=== PATIENT | female | born 1975 | race Caucasian/White ===

== ENCOUNTER 2017-09-26 22:57 | Inpatient (IN) | payer OTHER ==
[~2017-09-26] VITALS: Ht 152.4 cm; Wt 66.0 kg
[2017-09-27] MEDS ORDERED: ONDANSETRON 4 MG INJ IV PRN (01:00)
[2017-09-27 01:21] VITALS: BP 131/68; PULSE 84; RESP 14
[2017-09-27] MEDS: DEXTROSE 5%-0.45% NACL 1,000 ML IV SCH ×3 (01:41→21:00)
[2017-09-27] MEDS: morphine 4 MG/ML VIAL IV PRN ×4 (01:41→21:42)
[2017-09-27 01:52] VITALS: Ht 152.4 cm; Wt 66.0 kg
[2017-09-27 06:20] LABS: BASOPHIL # 0.1 10^3/ul (0.0-0.1); BASOPHILS % 0.3 % (0.0-2.0); EOSINOPHILS # 0.4 10^3/ul (0.0-0.5); EOSINOPHILS % 2.1 % (0.0-7.0); HEMATOCRIT 33.5 % (37.0-47.0); HEMOGLOBIN 10.8 g/dl (12.0-16.0); LYMPHOCYTES # 3.7 10^3/ul (0.8-2.9); LYMPHOCYTES % 21.4 % (15.0-51.0); MEAN CORPUSCULAR HEMOGLOBIN 26.1 pg (29.0-33.0); MEAN CORPUSCULAR HGB CONC 32.2 g/dl (32.0-37.0); MEAN CORPUSCULAR VOLUME 80.9 fl (82.0-101.0); MEAN PLATELET VOLUME 10.1 fl (7.4-10.4); NEUTROPHILS % 69.8 % (39.0-77.0); PLATELET COUNT 457 10^3/UL (140-415); RED BLOOD COUNT 4.14 10^6/ul (4.20-5.40); RED CELL DISTRIBUTION WIDTH 13.6 % (11.5-14.5); WHITE BLOOD COUNT 17.3 10^3/ul (4.8-10.8)
--- NOTE | 2017-09-27 07:03 | HP ---
Date/Time of Note Date/Time of Note DATE: 09/27/17 TIME: 06:56 Assessment/Plan VTE Prophylaxis VTE Prophylaxis Intervention: SCD's Lines/Catheters IV Catheter Type (from Nrs): Peripheral IV Assessment/Plan Assessment/Plan 1. Cholelithiasis with likely cholecystitis -NPO with IV fluid -Pain meds and antiemetics as needed -IV antibiotics -will order a HIDA scan -Surgery and a GI consult 2. Leukocytosis, secondary to above -Continue IV antibiotic HPI/ROS Admit Date/Time Admit Date/Time Sep 27, 2017 at 00:29 Hx of Present Illness This is a 42-year-old female with no significant past medical history who initially presented to [facility] complaining of abdominal pain. Patient was transferred to [facility] because of insurance reasons. She said her pain started 5 days ago and it is localized in the right upper and lower quadrant area. She reported nausea and few episodes of nonbilious nonbloody vomiting. Denied fever/chills, chest pain, shortness of breath, constipation or diarrhea. At [place], right upper quadrant ultrasound shows sludge and stone in the gallbladder. CBD measures 3.4 mm and the gallbladder wall measures 10.2 cm. The patient denied a history of cholelithiasis. Lab outside hospital shows a WBC of 26,000, otherwise CBC and BMP were within acceptable range. Lipase and LFTs were within normal limits. PMH/Family/Social Social History Smoking Status: Never smoker Exam/Review of Systems Vital Signs Vitals Vital Signs Date Time Temp Pulse Resp B/P Pulse Ox O2 Delivery O2 Flow Rate FiO2 09/27/17 01:21 98.4 84 14 131/68 100 Room Air Intake and Output 09/26/17 09/26/17 09/27/17 15:00 23:00 07:00 Intake Total 450 ml Output Total 400 ml Balance 50 ml Exam Constitutional: alert, oriented, well developed Head: atraumatic, normocephalic Eyes: EOMI, PERRL Respiratory: clear to auscultation, normal air movement Cardiovascular: nl pulses, regular rate and rhythm Gastrointestinal: other (Right upper and lower quadrant tenderness. No guarding no rigidity), soft Extremities: normal pulses Labs Result Diagram: 09/27/17 0443 Medications Medications Current Medications Dextrose/Sodium Chloride (D5-1/2ns) 1,000 ml @ 100 mls/hr Q10H IV Last administered on 09/27/17 01:41; Admin Dose 100 MLS/HR; Start 09/27/17 at 01: 00 Morphine Sulfate (morphine) 4 mg Q4H PRN IV SEVERE PAIN Last administered on 06:17; Admin Dose 4 MG; Start 09/27/17 at 01:00 Ondansetron HCl (Zofran Inj) 4 mg Q6H PRN IV NAUSEA AND/OR VOMITING; Start at 01:00 Famotidine (Pepcid Iv) 20 mg BID IV ; Start 09/27/17 at 09:00 MARIA LUZ DOWNING MD Sep 27, 2017 07:03
[2017-09-27 07:17] LABS: ALBUMIN 3.4 g/dl (3.3-4.9); BILIRUBIN,INDIRECT 0.5 mg/dl (0-1.1); BILIRUBIN,TOTAL 0.5 mg/dl (0.2-1.3); CALCIUM 8.8 mg/dl (8.4-10.2); CREATININE 0.67 mg/dl (0.44-1.00); MAGNESIUM 1.8 mg/dl (1.7-2.5); PHOSPHORUS 4.2 mg/dl (2.5-4.9); TOTAL PROTEIN 6.8 g/dl (6.1-8.1)
[2017-09-27 08:00] VITALS: BP 114/59; RESP 18
[2017-09-27] MEDS: PIPER-TAZO 3.375 GM IV (PMX) 50 ML IVPB SCH ×3 (08:40→17:55)
[2017-09-27] MEDS: FAMOTIDINE 20 MG INJ IV SCH ×2 (08:41→21:42)
--- NOTE | 2017-09-27 10:56 | PN ---
Date/Time of Note Date/Time of Note DATE: 09/27/17 TIME: 10:56 Assessment/Plan VTE Prophylaxis VTE Prophylaxis Intervention: SCD's Lines/Catheters IV Catheter Type (from Nrsg): Peripheral IV Assessment/Plan Assessment/Plan 1. Cholelithiasis - Patient still experiencing R quadrant discomfort and US shows cholelithiasis without cholecystitis - HIDA scan ordered - GI on board and recommendations appreciated - Dr. Alaniz consulted for evaluation. States will come see patient but he will not be able to operate this week if need be. Discussed possibly performing as outpatient if not emergent which does not seem like it will be. - Keep NPO until after HIDA and consultations evaluation - Pain meds and antiemetics as needed - IV antibiotics 2. Leukocytosis, secondary to above -Continue IV antibiotic 3. Disposition - Continue monitoring in med/surg pending HIDA and GI and surgery evaluations. Subjective 24 Hr Interval Summary Free Text/Dictation Patient still experiencing right lower quadrant discomfort but denies any further episode of nausea or vomiting. Exam/Review of Systems Vital Signs Vitals Vital Signs Date Time Temp Pulse Resp B/P Pulse Ox O2 Delivery O2 Flow Rate FiO2 09/27/17 08:00 97.8 83 18 114/59 98 09/27/17 01:21 Room Air Intake and Output 09/26/17 09/26/17 09/27/17 15:00 23:00 07:00 Intake Total 450 ml Output Total 400 ml Balance 50 ml Exam Constitutional: alert, distress (secondary to pain), oriented, well developed Psych: nl mood/affect Head: atraumatic, normocephalic Eyes: EOMI, PERRL ENMT: mucosa pink and moist Neck: non-tender, supple Respiratory: clear to auscultation, No crackles/rales, No wheezing Cardiovascular: regular rate and rhythm, No systolic murmur Gastrointestinal: soft, tender (right upper/mid quadrant), No distended, No rebound or guarding Genitourinary - Female: No CVA tenderness Extremities: normal pulses Neurological: RISK MANAGER II-XII intact, nl mental status, nl speech Skin: nl turgor Lymph: nl lymph nodes Results Result Diagram: 09/27/17 0443 09/27/17 044 Results 24 hrs Laboratory Tests Test 09/27/17 04:43 White Blood Count 17.3 H Red Blood Count 4.14 L Hemoglobin 10.8 L Hematocrit 33.5 L Mean Corpuscular Volume 80.9 L Mean Corpuscular Hemoglobin 26.1 L Mean Corpuscular Hemoglobin Concent 32.2 Red Cell Distribution Width 13.6 Platelet Count 457 H Mean Platelet Volume 10.1 Neutrophils % 69.8 Lymphocytes % 21.4 Monocytes % 6.0 Eosinophils % 2.1 Basophils % 0.3 Nucleated Red Blood Cells % 0.0 Neutrophils # 12.0 H Lymphocytes # 3.7 H Monocytes # 1.0 H Eosinophils # 0.4 Basophils # 0.1 Nucleated Red Blood Cells # 0.0 Sodium Level 140 Potassium Level 4.0 Chloride Level 105 Carbon Dioxide Level 26 Anion Gap 13 Blood Urea Nitrogen 12 Creatinine 0.67 Glucose Level 100 Calcium Level 8.8 Phosphorus Level 4.2 Magnesium Level 1.8 Total Bilirubin 0.5 Direct Bilirubin 0.00 Indirect Bilirubin 0.5 Aspartate Amino Transf (AST/SGOT) 18 Alanine Aminotransferase (ALT/SGPT) 24 Alkaline Phosphatase 101 Total Protein 6.8 Albumin 3.4 Globulin 3.40 H Albumin/Globulin Ratio 1.00 Medications Medications Current Medications Dextrose/Sodium Chloride (D5-1/2ns) 1,000 ml @ 100 mls/hr Q10H IV Last administered on 09/27/17 01:41; Admin Dose 100 MLS/HR; Start 09/27/17 at 01: 00 Morphine Sulfate (morphine) 4 mg Q4H PRN IV SEVERE PAIN Last administered on 10:13; Admin Dose 4 MG; Start 09/27/17 at 01:00 Ondansetron HCl (Zofran Inj) 4 mg Q6H PRN IV NAUSEA AND/OR VOMITING; Start at 01:00 Famotidine 20 mg 20 mg BID IV Last administered on 09/27/17 08:41; Admin Dose 20 MG; Start 09/27/17 at 09:00 Piperacillin Sod/ Tazobactam Sod (Zosyn 3.375gm/ 50 ml (Pmx)) 50 ml @ 100 mls/ hr Q6 IVPB Last administered on 09/27/17 08:40; Admin Dose 100 MLS/HR; Start 09/27/17 at 09:00 ALEX CANALES MD Sep 27, 2017 10:56
--- NOTE | 2017-09-27 11:37 | RADRPT ---
PROCEDURE: US Abdomen Complete. CLINICAL INDICATION: CHOLELITHIASIS, pt npo, travels w/c, right upper quadrant pain TECHNIQUE: Multiple real-time images were acquired of the patient's abdomen and retroperitoneum ut ilizing a high resolution transducer. COMPARISON: None FINDINGS: The liver measures 15.3 cm and demonstrates normal echogenicity. There is no intrahepatic biliary ductal dilatation. The extrahepatic common bile duct measures 4 mm. The main portal vein is patent w ith proper directional flow. There is cholelithiasis. There is no gallbladder wall thickening or pericholecystic fluid. The visualized pancreas is unremarkable. The spleen measures 7.7 cm. The right kidney measures 9.9 cm. The left kidney measures 10.5 cm. There are no renal calculi or hy dronephrosis bilaterally. The visualized abdominal aorta and IVC are grossly unremarkable. IMPRESSION: Cholelithiasis without evidence of acute cholecystitis. Normal CBD. RPTAT: EE Physician Sara Date Time Electronically viewed and signed by Physician Sara on 09/27/2017 11:36 /
--- NOTE | 2017-09-27 16:41 | RADRPT ---
AMENDMENT: 09/28/2017 8:01:52 PM Dina Darby Md Delayed images of the abdomen were obtained at 3 hours post injection, which demonstrate a visualiza tion of the gastrointestinal activity. PROCEDURE: HIDA scan CLINICAL INDICATION: 42 -year-old patient with abdominal pain. TECHNIQUE: Following the intravenous injection of 8.1 mCi of Tc-99m Mebrofenin, multiple anterior dynamic images of the abdomen along with numerous planar spot images of the abdomen were obtained up to 90 minutes post injection. COMPARISON: No prior HIDA scans. FINDINGS: The liver is promptly visualized, demonstrates homogeneous distribution of radionuclide. There is a visualization of the common bile duct and gallbladder within normal time. There is a nonvisualization of the gastrointestinal activity up to 90 minutes post injection. IMPRESSION: 1. Nonvisualization of the gastrointestinal activity up to 90 minutes post injection. 2. No evidence of a cystic duct obstruction. Delayed images to follow. RPTAT: HH .Dina Darby MD, MD Date Time Electronically viewed and signed by .Dina Darby MD, on 09/28/2017 20:01 .L/
--- NOTE | 2017-09-27 17:48 | CONS ---
Date/Time of Note Date/Time of Note DATE: 09/27/17 TIME: 17:33 Assessment/Plan Assessment/Plan Chief Complaint/Hosp Course Assessment: Cholecystitis Cholecystitis WBC 17.3 No evidence of common bile duct obstruction-negative HIDA scan Plan: Lap [place] on Tuesday Keep npo Continue treating with antibiotics Pain management Monitor H&H Transfuse for hemoglobin less than 7.5 Consultation performed in collaboration with Subjective: Patient is awake and alert, complaining of right upper quadrant pain. Currently n.p.o. she is being taken to nuclear medicine for the follow-up. Plan for Laparoscopic Cholecystectomy per surgical team is discussed with the patient and nursing stuff. Problems: Consultation Date/Type/Reason Admit Date/Time Sep 27, 2017 at 00:29 Date of Consultation: Sep 27, 2017 Type of Consultation: GI Reason for Consultation Cholelithiasis Hx of Present Illness This is a 42-year-old female who was admitted this morning for abdominal pain in the right upper quadrant that started 5 days ago. She was initially admitted to [facility] and then transferred to [facility]. Patient was complaining of nausea and previous vomiting. She denies hematemesis, hematochezia, fever, constipation or diarrhea. On an ultrasound done at [place] patient was positive for cholecystitis and dilated common bile duct. On admission here she was found to have hypo-chromic, microcytic anemia , hemoglobin 10.8. Leukocytosis 17.3, bilirubin and liver enzymes were within normal. He had a scan was negative for obstruction. Surgical consult was obtained with Dr. Vogt. The plan is for Laparoscopic cholecystectomy. Gastrointestinal: no complaints (See HPI) Past Medical History Obesity Past Surgical History X2 Family History Significant Family History: no pertinent family hx Social History Alcohol Use: rarely Smoking Status: Never smoker Drug Use: none Exam/Review of Systems Vital Signs Vitals Vital Signs Date Time Temp Pulse Resp B/P Pulse Ox O2 Delivery O2 Flow Rate FiO2 09/27/17 08:00 97.8 83 18 114/59 98 09/27/17 01:21 Room Air Intake and Output 09/26/17 09/26/17 09/27/17 15:00 23:00 07:00 Intake Total 450 ml Output Total 400 ml Balance 50 ml Exam PHYSICAL EXAMINATION: GENERAL: Well developed, obese, well nourished, alert & oriented x 3, in no acute distress SKIN: No lesions, no stigmata chronic liver disease, no evidence of bleeding diathesis LYMPHATIC: No palpable lymphadenopathy. HEAD: Normocephalic, atraumatic, no tenderness. EYES: Pupils equal reactive to light and accommodation, full extraocular movements, sclera clear, non-icteric, no discharge. EARS/NOSE AND THROAT: Ears normal, nose normal, oropharynx normal, oral membranes well hydrated without lesions. NECK: Supple, no masses, thyroid normal, JVP within normal limits, carotids normal without bruits. CHEST: Inspection within normal limits. CARDIOVASCULAR: Heart: Regular rate and rhythm, no murmurs, gallops or rubs. Peripheral pulses present within normal limits, no cyanosis, clubbing or edemas. No pulsatile abdominal mass RESPIRATORY: Lungs clear to auscultation and percussion, no wheezing, no rubs GASTROINTESTINAL AND LIVER: Abdomen: Soft, obese, right upper quadrant tenderness, non-distended, no hernias, no masses, no organomegaly, no ascites, no guarding, no rebound tenderness, normoactive bowel sounds. Rectal: Deferred. GENITOURINARY: Female genitalia within normal limits. EXTREMITIES: No cyanosis, clubbing or edema. Results Result Diagram: 09/27/17 0443 09/27/17 0443 Results 24 hrs Laboratory Tests Test 09/27/17 04:43 White Blood Count 17.3 H Red Blood Count 4.14 L Hemoglobin 10.8 L Hematocrit 33.5 L Mean Corpuscular Volume 80.9 L Mean Corpuscular Hemoglobin 26.1 L Mean Corpuscular Hemoglobin Concent 32.2 Red Cell Distribution Width 13.6 Platelet Count 457 H Mean Platelet Volume 10.1 Neutrophils % 69.8 Lymphocytes % 21.4 Monocytes % 6.0 Eosinophils % 2.1 Basophils % 0.3 Nucleated Red Blood Cells % 0.0 Neutrophils # 12.0 H Lymphocytes # 3.7 H Monocytes # 1.0 H Eosinophils # 0.4 Basophils # 0.1 Nucleated Red Blood Cells # 0.0 Sodium Level 140 Potassium Level 4.0 Chloride Level 105 Carbon Dioxide Level 26 Anion Gap 13 Blood Urea Nitrogen 12 Creatinine 0.67 Glucose Level 100 Calcium Level 8.8 Phosphorus Level 4.2 Magnesium Level 1.8 Total Bilirubin 0.5 Direct Bilirubin 0.00 Indirect Bilirubin 0.5 Aspartate Amino Transf (AST/SGOT) 18 Alanine Aminotransferase (ALT/SGPT) 24 Alkaline Phosphatase 101 Total Protein 6.8 Albumin 3.4 Globulin 3.40 H Albumin/Globulin Ratio 1.00 Medications Medications Current Medications Dextrose/Sodium Chloride (D5-1/2ns) 1,000 ml @ 100 mls/hr Q10H IV Last administered on 09/27/17 11:41; Admin Dose 100 MLS/HR; Start 09/27/17 at 01: 00 Morphine Sulfate (morphine) 4 mg Q4H PRN IV SEVERE PAIN Last administered on 10:13; Admin Dose 4 MG; Start 09/27/17 at 01:00 Ondansetron HCl (Zofran Inj) 4 mg Q6H PRN IV NAUSEA AND/OR VOMITING; Start at 01:00 Famotidine 20 mg 20 mg BID IV Last administered on 09/27/17 08:41; Admin Dose 20 MG; Start 09/27/17 at 09:00 Piperacillin Sod/ Tazobactam Sod (Zosyn 3.375gm/ 50 ml (Pmx)) 50 ml @ 100 mls/ hr Q6 IVPB Last administered on 09/27/17 08:40; Admin Dose 100 MLS/HR; Start 09/27/17 at 09:00 Copies To: CC: VASQUEZ RIVAS MD, ANASTASIA NP Sep 27, 2017 17:44
--- NOTE | 2017-09-27 19:29 | CONS ---
DATE OF ADMISSION: 09/27/2017 DATE OF CONSULTATION: 09/27/2017 PLACE OF SERVICE: [facility] 4th floor. REFERRING PHYSICIAN: Maria Luz Downing MD Dear Dr. Downing: Thank you very much for allowing us to participate in the care of this very pleasant lady and her wonderful family. REASON FOR CONSULTATION: Possible acute cholecystitis. HISTORY OF PRESENT ILLNESS: The patient is a very pleasant 42-year-old lady with only known comorbidity of BMI 28.4 and status post 2 prior C-sections presenting with a few day history of right upper quadrant abdominal pain that was associated with nausea and a few episodes of nonbloody vomiting. The patient did not report any fevers or chills, chest pain, shortness of breath, changes in appetite, changes in bowel or bladder habits, diarrhea or constipation or other major problems. The patient presented to an outside hospital and was transferred to [facility] due to insurance capitation. Right upper quadrant ultrasound demonstrated a large gallbladder stone in the neck of the gallbladder, which was nonmobile. HIDA scan was done today, which shows visualization of the gallbladder, but nonvisualization of the bowel after about 60 minutes. The delayed images are pending. Her white blood cell count on admission was elevated at 17.3. During my visit, the patient did not have any other major complaints. COMORBIDITIES: 1. BMI 28.4. 2. C-sections x 2. ALLERGIES: NO KNOWN DRUG ALLERGIES. MEDICATIONS: Reported carefully and reviewed in the electronic record system. SOCIAL HISTORY: The patient is a homemaker and lives with her family, that includes her and 2 children. She does not report any smoking, drinking , or intravenous drug use. FAMILY HISTORY: There is no mention of major medical, surgical or oncologic problems in the family. REVIEW OF SYSTEMS: Other than the above-mentioned, there are no other pertinent positives or pertinent negatives in a complete 14-point review of systems. PHYSICAL EXAMINATION: GENERAL: The patient appears to be a very pleasant lady of descent, appearing stated age, lying in bed comfortably and in no acute distress. BMI is 28.4. VITAL SIGNS: Normal with the exception of slightly low blood pressure at 114/ 59. HEENT: Head is normocephalic and atraumatic. Her extraocular muscles and hearing are grossly intact bilaterally and symmetrically. Her sclerae are nonicteric. Her oral cavity is clear and her oral mucosa appeared to be pink and moist. She has fair dentition. NECK: Supple. There is no lymphadenopathy or JVD. There is no submental, submandibular or supraclavicular lymphadenopathy. CHEST: Rises symmetrically with each breath, and she is breathing comfortably. There are no audible wheezes, rales or rhonchi on the gross exam. Her carotid pulses are palpable in the neck bilaterally and symmetrically. Her radial pulse is palpable on the right wrist. Lower extremities contain no pitting edema around the ankles bilaterally and symmetrically. ABDOMEN: Soft, nondistended and mild to moderately tender in the right upper quadrant. There is no evidence of organomegaly, caput medusae, engorged subcutaneous veins, or ascites. There are no peritoneal signs or guarding. SKIN: Appears to be pink and feels warm to touch. NEUROLOGIC: She is awake, alert, and follows commands appropriately. LABORATORY DATA: As above. Note that the patient's electrolytes and liver function and injury parameters are all normal. Her albumin is 3.4 after resuscitation. IMAGING: Pertinent findings on the images were reviewed above. Note that I personally reviewed all the available images and I agree in general with their overall reported findings. ASSESSMENT AND PLAN: A very pleasant and otherwise fairly healthy 42-year-old lady with comorbidity of body mass index 28.4 and 2 prior C-sections presenting with a picture that is consistent with either chronic cholecystitis or biliary colic. My hunch is that this is more of chronic cholecystitis with potentially an acute phase to it. The stone is in the neck of the gallbladder and is nonmobile and the gallbladder is distended. The HIDA scan demonstrates visualization of the gallbladder, but nonvisualization of the bowel, but the LFTs and alkaline phosphatase and bilirubin are all normal, indicating that there is no common bile duct obstruction. 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 We have enough indication for a laparoscopic cholecystectomy and we have set the patient up in the next available elective time slot in the operating room for laparoscopic, possible open, cholecystectomy. I described all of our findings in detail with the patient and her and answered all of their questions. I reviewed the operation in detail including the risks, benefits and alternatives and consented the patient and family for the operation. Patient and family had an opportunity to answer all their questions and appeared to understand with plans and agreed to proceed with surgery. With above assessment, I recommend the followin. To the OR for above Thank you again for the opportunity to participate in the care of this very pleasant lady and her wonderful family. If there are any questions, please feel free to contact me at [phone]. NATURE THE PRESENTING PROBLEM: High risk. COMPLEXITY OF DECISION MAKING: High complexity. Dictated By: BRENDA RUIZ/NTS Conf#: [id number] DID#: [id number] CC: MARIA LUZ DOWNING MD;*EndCC* MTDD
[2017-09-27 19:53] VITALS: BP 117/79; RESP 18
[2017-09-28] VITALS (17 sets, daily range): BP systolic 108–136; BP diastolic 57–80; PULSE 76–98; RESP 14–22
[2017-09-28] MEDS: PIPER-TAZO 3.375 GM IV (PMX) 50 ML IVPB SCH ×2 (00:30→06:01)
[2017-09-28] MEDS: DEXTROSE 5%-0.45% NACL 1,000 ML IV SCH (02:26)
[2017-09-28 05:25] LABS: BASOPHIL # 0.1 10^3/ul (0.0-0.1); BASOPHILS % 0.5 % (0.0-2.0); EOSINOPHILS % 8.9 % (0.0-7.0); HEMATOCRIT 32.2 % (37.0-47.0); HEMOGLOBIN 10.3 g/dl (12.0-16.0); LYMPHOCYTES % 25.7 % (15.0-51.0); MEAN CORPUSCULAR HEMOGLOBIN 25.8 pg (29.0-33.0); MEAN CORPUSCULAR VOLUME 80.5 fl (82.0-101.0); MEAN PLATELET VOLUME 9.7 fl (7.4-10.4); MONOCYTE # 0.9 10^3/ul (0.3-0.9); MONOCYTES % 7.7 % (0.0-11.0); NEUTROPHIL # 6.6 10^3/ul (1.6-7.5); NEUTROPHILS % 56.8 % (39.0-77.0); PLATELET COUNT 430 10^3/UL (140-415); RED CELL DISTRIBUTION WIDTH 13.6 % (11.5-14.5); WHITE BLOOD COUNT 11.6 10^3/ul (4.8-10.8)
[2017-09-28 05:49] LABS: ALBUMIN 3.2 g/dl (3.3-4.9); ALBUMIN/GLOBULIN RATIO 0.91; BILIRUBIN,INDIRECT 0.5 mg/dl (0-1.1); BILIRUBIN,TOTAL 0.5 mg/dl (0.2-1.3); CALCIUM 8.7 mg/dl (8.4-10.2); CREATININE 0.76 mg/dl (0.44-1.00); MAGNESIUM 1.9 mg/dl (1.7-2.5); TOTAL PROTEIN 6.7 g/dl (6.1-8.1)
[2017-09-28] MEDS ORDERED: CEFAZOLIN 1 GM INJ ONE (07:24)
[2017-09-28] MEDS ORDERED: PROPOFOL 20 ML ONE (07:24)
[2017-09-28] MEDS ORDERED: ROCURONIUM 50 MG INJ ONE (07:24)
[2017-09-28] MEDS ORDERED: NEOSTIGMINE 3 MG/3 ML SYRINGE ONE (07:25)
[2017-09-28] MEDS ORDERED: MIDAZOLAM 1 MG/ML 2 ML INJ ONE (07:26)
[2017-09-28] MEDS ORDERED: FENTAnyl 50 MCG/ML VIAL ONE (07:26)
[2017-09-28] MEDS ORDERED: DEXAMETHASONE 4 MG/ML 1 ML INJ ONE (07:26)
[2017-09-28] MEDS ORDERED: ONDANSETRON 4 MG INJ ONE (07:26)
--- NOTE | 2017-09-28 07:35 | HPN ---
Date/Time of Note Date/Time of Note DATE: 09/28/17 TIME: 07:35 Interval H&P Admission Note Pt. seen H&P reviewed: No system changes Pt. seen H&P reviewed. No system changes (I attest that I have seen and examined the patient and reviewed the operation in detail, as well as its risks , benefits and alternatives of the operation). I attest that I have seen and examined the patient and reviewed in detail the operation, and its associated risks, benefits and alternative. I have answered all the patient's questions to the best of my ability and the patient wishes to proceed. Please refer to rest of electronic medical record for additional updates. BRENDA LYLE M.D. Sep 28, 2017 07:35
[2017-09-28] MEDS: FAMOTIDINE 20 MG INJ IV SCH ×2 (08:02→21:01)
[2017-09-28] MEDS ORDERED: BUPIVACAINE 0.25%/EPI (SDV) 30 ML INJ ONE (08:02)
[2017-09-28] MEDS ORDERED: DIPHENHYDRAMINE 50 MG INJ IV PRN (08:30)
[2017-09-28] MEDS ORDERED: LABETALOL HCL 20MG INJ IV PRN (08:30)
[2017-09-28] MEDS ORDERED: ONDANSETRON 4 MG INJ IV PRN (08:30)
[2017-09-28] MEDS ORDERED: HYDROmorphONE (0.2 MG/ML) 10ML SYG IV PRN ×3 (08:30)
[2017-09-28] MEDS ORDERED: MIDAZOLAM 1 MG/ML 2 ML INJ IV PRN (08:30)
[2017-09-28] MEDS ORDERED: IPRATROPIUM (NEB) 0.5 MG/2.5 ML AMP HHN PRN (08:30)
[2017-09-28] MEDS ORDERED: TRIMETHOBENZAMIDE 100 MG/ML VIAL IM PRN (08:30)
[2017-09-28] MEDS ORDERED: MEPERIDINE 25 MG INJ IV PRN (08:30)
[2017-09-28] MEDS ORDERED: EPHEDrine SULFATE 50 MG/5 ML SYG IV PRN (08:30)
[2017-09-28] MEDS ORDERED: hydrALAzine 20 MG INJ IV PRN (08:30)
[2017-09-28] MEDS ORDERED: FENTAnyl 50 MCG/ML VIAL IV PRN ×3 (08:30)
[2017-09-28] MEDS ORDERED: OXYCODONE/ACETAMINOPHEN (5/325) TAB PO PRN ×2 (08:30)
[2017-09-28] MEDS ORDERED: ALBUTEROL 0.083% (NEB) 2.5 MG/3 ML AMP HHN PRN (08:30)
[2017-09-28] MEDS ORDERED: SUGAMMADEX SODIUM 200 MG/2 ML VIAL IV ONE (08:53)
[2017-09-28] MEDS ORDERED: KETOROLAC 30 MG INJ ONE (08:57)
--- NOTE | 2017-09-28 09:10 | OPR ---
Date/Time of Note Date/Time of Note DATE: 09/28/17 TIME: 09:09 Operative Report Free Text/Dictation [facility] INPATIENT OPERATIVE NOTE PLACE OF SERVICE: [facility] DATE OF SURGERY: 09/28/2017 PREOPERATIVE DIAGNOSIS: 1. Acute cholecystitis 2. BMI 28.4 3. C-sections x 2 4. Cholelithiasis POSTOPERATIVE DIAGNOSIS: 1. Acute cholecystitis 2. BMI 28.4 3. C-sections x 2 4. Cholelithiasis OPERATION: 1. Laparoscopic cholecystectomy SURGEON: Brenda Lyle M.D. SEISMIC INTERPRETER: None ANESTHESIA: General endotracheal tube anesthesia ANESTHESIOLOGIST: Dinorah Rush M.D. BRIEF SUMMARY: An otherwise uncomplicated laparoscopic cholecystectomy was performed with findings of early acute cholecystitis. BRIEF HISTORY: The patient is a very pleasant and otherwise fairly healthy 42- year-old lady with comorbidity of body mass index 28.4 and 2 prior C-sections presenting with a picture that is consistent with either chronic cholecystitis or biliary colic. I met with the patient and family () and counseled them regarding the possible options of treatment, and I strongly suggested a laparoscopic, possible open cholecystectomy. We reviewed the operation in detail as well as the risks, benefits, alternatives, and expected outcomes of this operation. After careful consideration of all the risks, benefits, and alternatives, the patient and family appeared to understand those risks and wished to proceed with surgery. For a detailed report of my consultation with patient and family, please refer to my separate consultation note. Please also note that a HIDA scan was performed which demonstrated an open cystic duct but nonvisualization of the bowel. Given the ultrasound findings and the largest stone in the neck of the gallbladder, and the normal laboratory values for liver function and injury parameters for 2 days, I concluded that the issue was mainly from the stone in the neck of the gallbladder and not from choledocholithiasis. For this reason, we decided to go ahead with the operation. STATEMENT OF THE INFORMED CONSENT: The patient and family appeared to understand the risks of the operation to include, but not be limited to risk of postoperative pain and scar tissue, possible infection or bleeding requiring other interventions such as opening the wound, placement of drainage catheters, or other operative interventions; possible injury to surrounding to structures including bowel, bladder, bile duct, or blood vessels, or solid organs such as liver, kidney, or pancreas requiring other interventions or procedures; possible leakage of bile from surgical clip sites, suture lines, or worse, from common bile duct injury, causing significant increase in morbidity and mortality and requiring multiple interventions including but not limited to, placement of drainage catheters, imaging studies, as well as operative interventions; possible other source of sepsis such as urinary tract infections or pneumonias, or other sources of potentially life threatening problems such as deep venous thrombus formation causing pulmonary embolism, myocardial arrhythmias and infarctions, and even . After careful consideration of all their options, the patient and family appeared to understand and wished to proceed with surgery. DESCRIPTION OF PROCEDURE: After obtaining informed consent, the patient was brought into the operating room and was placed in a normal supine position, where successful general endotracheal tube anesthesia was performed. The patient 's abdominal skin was prepped and draped, from the nipple line down to the level of the groins, in the usual sterile fashion. Intravenous access was already in place, and appropriately chosen and dosed prophylactic intravenous antimicrobials were administered. We then called a surgical time-out where patient's identification, date of , nature of the operation, allergies, presence of intravenous antimicrobials, presence of needed equipment, and any other concerns were reviewed and agreed upon by all members of the operating room team. We then started the operation by placing a 5-mm skin incision in the right- upper quadrant, subcostal midclavicular line, and introduced a 5-mm [employer] trocar into the peritoneal space, visualizing all the layers of the abdominal wall as we entered. Note that there was no indication of any injury to underlying structures once we entered the peritoneum. We insufflated the abdominal cavity to a maximum pressure of 15 mmHg, again, confirmed lack of any injury to underlying structures prior to visualizing the rest of the abdominal cavity. We found the fundus of the gallbladder to be visible. There was no evidence of malignancy. No evidence of calcifications or significant issues with adhesions, or other abnormalities. The liver appeared to be healthy. With this information, we went a head and placed the other trocars under direct visualization, after injecting their sites with 0.25% Marcaine with epinephrine , placing a 5-mm trocar in the umbilical midline area, a 5-mm trocar in the right anterior axillary line, and a 12-mm trocar in the midline subxiphoid region. With our instruments in place, we had excellent visualization and access to the right-upper quadrant. We then decompressed the gallbladder using laparoscopic needle prior to grasping the fundus of the gallbladder and pointed up towards the right-upper quadrant. There was mild omental adhesions onto the infundibulum which we took down with judicious use of cautery, as well as meticulous blunt dissection. We were then able to grasp the infundibulum and pull it out in order to expose the critical triangle of [place]. We then placed our usual serosal cuts along the long axis of the gallbladder 1 cm away from its attachment to the liver bed up towards the fundus, and then joined these 2 lines under the infundibulum, taking care not to deliver any energy to underlying structures. We then performed meticulous dissection to identify and circumferentially isolate both the cystic duct and cystic artery, prior to transecting them between 2 surgical Endoclips, proximally and one distally on the cystic artery and 3 surgical endoclips proximally and one distally on the cystic duct, transecting both using cold scissors, and only after making sure that these were the only 2 structures going into the gallbladder. We then shaved the gallbladder off the gallbladder bed using cautery, and then delivered it out inside of an EndoCatch bag through the 12-mm trocar site without enlarging the fascia or contaminating the wound. The gallbladder was sent to Pathology for evaluation. Returning to the abdominal cavity, we ensured that there was adequate hemostasis and bile-stasis prior to removal of all of or equipment, including the pneumoperitoneum, and then reapproximating the 12-mm trocar site with one [id number] 0 Vicryl suture, followed by washing the wounds with copious amounts of normal saline, and then reapproximating the skin using interrupted 4- 0 Monocryl sutures. Light dressing was then applied. At the end of the operation, both the sponge count and needle count were reportedly correct x2. The patient tolerated the procedure without any reported complications. ESTIMATED BLOOD LOSS: Less than 10 mL. BLOOD OR BLOOD PRODUCT TRANSFUSIONS: None to my knowledge. SPECIMENS: 1. Gallbladder GRAFTS: None COMPLICATIONS: None. DISPOSITION: Recovery area. Disclaimers: 1. Inadvertent spelling and grammatical errors are likely due to electronic health record (EHR)/dictation software used and do not reflect on the quality of delivered patient care. 2. The electronic timestamp recorded on this note does not necessarily reflect the actual date and time of the visit or the service. 3. Portions of this note may have been created through electronic templates and computer algorithms that might bring in information either from the system or from other physicians and providers. Please note that such information may or may not contain errors, the occurrence of which are outside of my control. In general (but not always) this happens either in the beginning or at the end of the note. The portion of the note that I have created are generally done in 1 continuous block of text, flanked at the beginning and at the end by " ", and entered into one field in the EHR. 4. There may be other unanticipated errors in the note that are outside of my control. I can only attest to the portions of the note that I have created. BRENDA LYLE M.D. Sep 28, 2017 09:10
[2017-09-28] MEDS ORDERED: DOCUSATE SODIUM 100 MG CAP PO PRN (09:30)
[2017-09-28] MEDS ORDERED: HYDROmorphONE 0.5 MG/0.5 ML SYG IV PRN (09:30)
[2017-09-28] MEDS ORDERED: HYDROmorphONE 1 MG/ML SYG IV PRN (09:30)
[2017-09-28] MEDS ORDERED: NA PHOSPHATE/BIPHOS 133 ML ENEMA PR PRN (09:30)
[2017-09-28] MEDS ORDERED: HYDROCODONE/APAP (5/325) TAB PO PRN (09:30)
[2017-09-28] MEDS ORDERED: BISACODYL 10 MG SUPP PR PRN (09:30)
[2017-09-28] MEDS: HYDROCODONE/APAP (5/325) TAB PO PRN (15:07)
--- NOTE | 2017-09-28 15:26 | PN ---
Date/Time of Note Date/Time of Note DATE: 09/28/17 TIME: 15:23 Assessment/Plan VTE Prophylaxis VTE Prophylaxis Intervention: SCD's Lines/Catheters IV Catheter Type (from Nrsg): Saline Lock Assessment/Plan Chief Complaint/Hosp Course S: Patient had surgery this morning. Presently tolerating diet. Ambulating. O: VS (see below) PE: Constitutional: alert, distress (secondary to pain), oriented, well developed Psych: nl mood/affect Head: atraumatic, normocephalic Eyes: EOMI, PERRL ENMT: mucosa pink and moist Neck: non-tender, supple Respiratory: clear to auscultation, No crackles/rales, No wheezing Cardiovascular: regular rate and rhythm, No systolic murmur Gastrointestinal: soft, tender (right upper/mid quadrant), No distended, No rebound or guarding Extremities: normal pulses Neurological: MOTION PICTURE CRITIC II-XII intact, nl mental status, nl speech Assessment/Plan: 42-year-old female with: 1. Cholelithiasis status post laparoscopic cholecystectomy earlier today. -Activity and pain control medications per art sales consultant team, diet as well. - GI on board and recommendations appreciated - Pain meds and antiemetics as needed - IV antibiotics 2. Leukocytosis, secondary to above -trending down now. -Continue IV antibiotic for now 3. Disposition -Likely home in 24 hours when she passes gas and cleared by art sales consultant teams. Problems: Exam/Review of Systems Vital Signs Vitals Vital Signs Date Time Temp Pulse Resp B/P Pulse Ox O2 Delivery O2 Flow Rate FiO2 09/28/17 12:45 77 118/76 97 Room Air 09/28/17 10:00 98.0 16 Intake and Output 09/27/17 09/27/17 09/28/17 15:00 23:00 07:00 Intake Total 50 ml 750 ml 1050 ml Balance 50 ml 750 ml 1050 ml Results Result Diagram: 09/28/17 0454 09/28/17 0454 Results 24 hrs Laboratory Tests Test 09/28/17 04:54 White Blood Count 11.6 #H Red Blood Count 4.00 L Hemoglobin 10.3 L Hematocrit 32.2 L Mean Corpuscular Volume 80.5 L Mean Corpuscular Hemoglobin 25.8 L Mean Corpuscular Hemoglobin Concent 32.0 Red Cell Distribution Width 13.6 Platelet Count 430 H Mean Platelet Volume 9.7 Neutrophils % 56.8 Lymphocytes % 25.7 Monocytes % 7.7 Eosinophils % 8.9 H Basophils % 0.5 Nucleated Red Blood Cells % 0.0 Neutrophils # 6.6 Lymphocytes # 3.0 H Monocytes # 0.9 Eosinophils # 1.0 H Basophils # 0.1 Nucleated Red Blood Cells # 0.0 Sodium Level 141 Potassium Level 4.0 Chloride Level 105 Carbon Dioxide Level 26 Anion Gap 14 Blood Urea Nitrogen 7 Creatinine 0.76 Glucose Level 114 Calcium Level 8.7 Magnesium Level 1.9 Total Bilirubin 0.5 Direct Bilirubin 0.00 Indirect Bilirubin 0.5 Aspartate Amino Transf (AST/SGOT) 17 Alanine Aminotransferase (ALT/SGPT) 29 Alkaline Phosphatase 91 Total Protein 6.7 Albumin 3.2 L Globulin 3.50 H Albumin/Globulin Ratio 0.91 Medications Medications Current Medications Ondansetron HCl (Zofran Inj) 4 mg Q6H PRN IV NAUSEA AND/OR VOMITING; Start at 01:00 Famotidine (Pepcid Iv) 20 mg BID IV Last administered on 09/27/17 21:42; Admin Dose 20 MG; Start 09/27/17 at 09:00 Acetaminophen/ Hydrocodone Bitart ([place] (5/325)) 1 tab Q4H PRN PO PAIN LEVEL 4 -7 Last administered on 09/28/17 15:07; Admin Dose 1 TAB; Start 09/28/17 at 09:30 Acetaminophen/ Hydrocodone Bitart ([place] (5/325)) 2 tab Q4H PRN PO PAIN LEVEL 7 -10; Start 09/28/17 at 09:30 Hydromorphone HCl (Dilaudid) 0.5 mg Q2H PRN IV PAIN; Start 09/28/17 at 09:30 Hydromorphone HCl (Dilaudid) 1 mg Q2H PRN IV PAIN; Start 09/28/17 at 09:30 Docusate Sodium (Colace) 100 mg BID PRN PO CONSTIPATION; Start 09/28/17 at 09: 30 Bisacodyl (Dulcolax Supp) 10 mg BID PRN [place] CONSTIPATION; Start 09/28/17 at 09: 30 Sodium Biphosphate/ Sodium Phosphate (Fleet Enema) 133 ml BID PRN [place] CONSTIPATION; Start 09/28/17 at 09:30 Famotidine (Pepcid Iv) 20 mg DAILY IV ; Start 09/29/17 at 09:00 Enoxaparin Sodium (Lovenox) 40 mg DAILY SC ; Start 09/29/17 at 09:00 JASEN MARTINS Sep 28, 2017 15:26
--- NOTE | 2017-09-28 15:43 | PN ---
Date/Time of Note Date/Time of Note DATE: 09/28/17 TIME: 15:36 Assessment/Plan VTE Prophylaxis VTE Prophylaxis Intervention: ambulation Lines/Catheters IV Catheter Type (from Nrs): Saline Lock Assessment/Plan Chief Complaint/Hosp Course Assessment: Cholecystitis Status post lap cachorro 09/28/17 No evidence of common bile duct obstruction-negative HIDA scan Plan: Advance diet as tolerated Continue antibiotics Pain management Antiemetics Monitor H&H Transfuse for hemoglobin less than 7.5 Consultation performed in collaboration with Subjective: Patient is laying in bed, denies nausea at the time. Feeling well with minimal amount of pain. Patient has 3 abdominal incisions covered with dressing, no drain present. White blood count is trending down with antibiotic therapy. At this point GI will sign off and will be available for consultation as needed. PHYSICAL EXAMINATION: GENERAL: Well developed, well nourished, alert & oriented x 3, in no acute distress SKIN: No lesions, no stigmata chronic liver disease, no evidence of bleeding diathesis. 3 surgical incision LYMPHATIC: No palpable lymphadenopathy. HEAD: Normocephalic, atraumatic, no tenderness. EYES: Pupils equal reactive to light and accommodation, full extraocular movements, sclera clear, non-icteric, no discharge. EARS/NOSE AND THROAT: Ears normal, nose normal, oropharynx normal, oral membranes well hydrated without lesions. NECK: Supple, no masses, thyroid normal, JVP within normal limits, carotids normal without bruits. CHEST: Inspection within normal limits. CARDIOVASCULAR: Heart: Regular rate and rhythm, no murmurs, gallops or rubs. Peripheral pulses present within normal limits, no cyanosis, clubbing or edemas. No pulsatile abdominal mass RESPIRATORY: Lungs clear to auscultation and percussion, no wheezing, no rubs GASTROINTESTINAL AND LIVER: Abdomen: Soft, mild tenderness at the surgical incision site, non-distended, no hernias, no masses, no organomegaly, no ascites , no guarding, no rebound tenderness, normoactive bowel sounds. 3 incisions are covered with Band-Aids, no evidence of bleeding. rectal: Deferred. GENITOURINARY: Female genitalia within normal limits. EXTREMITIES: No cyanosis, clubbing or edema. Problems: Exam/Review of Systems Vital Signs Vitals Vital Signs Date Time Temp Pulse Resp B/P Pulse Ox O2 Delivery O2 Flow Rate FiO2 12/20/17 12:45 77 118/76 97 Room Air 09/28/17 10:00 98.0 16 Intake and Output 09/27/17 09/27/17 09/28/17 15:00 23:00 07:00 Intake Total 50 ml 750 ml 1050 ml Balance 50 ml 750 ml 1050 ml Results Result Diagram: 09/28/17 0454 09/28/17 0454 Results 24 hrs Laboratory Tests Test 09/28/17 04:54 White Blood Count 11.6 #H Red Blood Count 4.00 L Hemoglobin 10.3 L Hematocrit 32.2 L Mean Corpuscular Volume 80.5 L Mean Corpuscular Hemoglobin 25.8 L Mean Corpuscular Hemoglobin Concent 32.0 Red Cell Distribution Width 13.6 Platelet Count 430 H Mean Platelet Volume 9.7 Neutrophils % 56.8 Lymphocytes % 25.7 Monocytes % 7.7 Eosinophils % 8.9 H Basophils % 0.5 Nucleated Red Blood Cells % 0.0 Neutrophils # 6.6 Lymphocytes # 3.0 H Monocytes # 0.9 Eosinophils # 1.0 H Basophils # 0.1 Nucleated Red Blood Cells # 0.0 Sodium Level 141 Potassium Level 4.0 Chloride Level 105 Carbon Dioxide Level 26 Anion Gap 14 Blood Urea Nitrogen 7 Creatinine 0.76 Glucose Level 114 Calcium Level 8.7 Magnesium Level 1.9 Total Bilirubin 0.5 Direct Bilirubin 0.00 Indirect Bilirubin 0.5 Aspartate Amino Transf (AST/SGOT) 17 Alanine Aminotransferase (ALT/SGPT) 29 Alkaline Phosphatase 91 Total Protein 6.7 Albumin 3.2 L Globulin 3.50 H Albumin/Globulin Ratio 0.91 Medications Medications Current Medications Ondansetron HCl (Zofran Inj) 4 mg Q6H PRN IV NAUSEA AND/OR VOMITING; Start at 01:00 Famotidine (Pepcid Iv) 20 mg BID IV Last administered on 09/27/17 21:42; Admin Dose 20 MG; Start 09/27/17 at 09:00 Acetaminophen/ Hydrocodone Bitart ([place] (5/325)) 1 tab Q4H PRN PO PAIN LEVEL 4 -7 Last administered on 09/28/17 15:07; Admin Dose 1 TAB; Start 09/28/17 at 09:30 Acetaminophen/ Hydrocodone Bitart ([place] (5/325)) 2 tab Q4H PRN PO PAIN LEVEL 7 -10; Start 09/28/17 at 09:30 Hydromorphone HCl (Dilaudid) 0.5 mg Q2H PRN IV PAIN; Start 09/28/17 at 09:30 Hydromorphone HCl (Dilaudid) 1 mg Q2H PRN IV PAIN; Start 09/28/17 at 09:30 Docusate Sodium (Colace) 100 mg BID PRN PO CONSTIPATION; Start 09/28/17 at 09: 30 Bisacodyl (Dulcolax Supp) 10 mg BID PRN [place] CONSTIPATION; Start 09/28/17 at 09: 30 Sodium Biphosphate/ Sodium Phosphate (Fleet Enema) 133 ml BID PRN [place] CONSTIPATION; Start 09/28/17 at 09:30 Famotidine (Pepcid Iv) 20 mg DAILY IV ; Start 09/29/17 at 09:00 Enoxaparin Sodium (Lovenox) 40 mg DAILY SC ; Start 09/29/17 at 09:00 Copies To: CC: VASQUEZ RIVAS MD, ANASTASIA NP Sep 28, 2017 15:43
[2017-09-29] MEDS: HYDROCODONE/APAP (5/325) TAB PO PRN ×2 (00:14→08:47)
[2017-09-29 01:58] VITALS: BP 132/60; RESP 20
[2017-09-29 05:19] LABS: BASOPHILS % 0.2 % (0.0-2.0); EOSINOPHILS # 0.1 10^3/ul (0.0-0.5); EOSINOPHILS % 0.4 % (0.0-7.0); HEMOGLOBIN 10.1 g/dl (12.0-16.0); LYMPHOCYTES # 3.6 10^3/ul (0.8-2.9); LYMPHOCYTES % 20.1 % (15.0-51.0); MEAN CORPUSCULAR HEMOGLOBIN 26.6 pg (29.0-33.0); MEAN CORPUSCULAR HGB CONC 33.7 g/dl (32.0-37.0); MEAN CORPUSCULAR VOLUME 79.2 fl (82.0-101.0); MEAN PLATELET VOLUME 9.9 fl (7.4-10.4); MONOCYTE # 1.3 10^3/ul (0.3-0.9); MONOCYTES % 7.2 % (0.0-11.0); NEUTROPHIL # 12.9 10^3/ul (1.6-7.5); NEUTROPHILS % 71.5 % (39.0-77.0); PLATELET COUNT 435 10^3/UL (140-415); RED BLOOD COUNT 3.79 10^6/ul (4.20-5.40); RED CELL DISTRIBUTION WIDTH 13.2 % (11.5-14.5); WHITE BLOOD COUNT 18.1 10^3/ul (4.8-10.8)
[2017-09-29 05:42] LABS: ALBUMIN 3.2 g/dl (3.3-4.9); ALBUMIN/GLOBULIN RATIO 0.94; BILIRUBIN,INDIRECT 0.1 mg/dl (0-1.1); BILIRUBIN,TOTAL 0.1 mg/dl (0.2-1.3); CREATININE 0.66 mg/dl (0.44-1.00); MAGNESIUM 1.8 mg/dl (1.7-2.5); POTASSIUM 3.9 mmol/L (3.5-5.1); TOTAL PROTEIN 6.6 g/dl (6.1-8.1)
[2017-09-29 08:01] VITALS: BP 111/67; RESP 18
[2017-09-29] MEDS: FAMOTIDINE 20 MG INJ IV SCH (08:42)
[2017-09-29] MEDS ORDERED: FAMOTIDINE 20 MG INJ IV SCH (09:00)
[2017-09-29] MEDS ORDERED: ENOXAPARIN 40 MG/0.4 ML SYG SC SCH (09:00)
--- NOTE | 2017-09-29 12:10 | PN ---
Date/Time of Note Date/Time of Note DATE: 09/29/17 TIME: 12:03 Assessment/Plan Lines/Catheters IV Catheter Type (from Nrs): Saline Lock [place] in Place (from Nrs): No Assessment/Plan Assessment/Plan [facility] Progress Note Date of Service: 09/29/17 Location of Service: [facility] 6W Today's Assessment & Plan: Overall stable and doing well. Abdomen remains benign. No indications of major postoperative complications or wound problems. No indication for acute surgical intervention. With above assessment, I've recommended the following for today: 1. Ok from my standpoint to d/c home 2. Please arrange for LFT checks on Tuesday 3. F/u with my office on 2-3 weeks 4. D/c instructions: Please call [phone] if any of fever, nausea, vomiting, discharge from wound , wound redness, increase or sudden pain, blood in stool or vomit, or any other unusual signs or symptoms. Also, please call the same number in a few days to schedule an appointment for your follow up visit. Patient may remove dressings tomorrow. Showers OK starting tomorrow. No swimming , hot tub or bath for 2 weeks. No lifting more than 25 lbs for 8 weeks. Thank you again for your great care of this very pleasant patient and wonderful family. If there are any questions, please feel free to call me at [phone]. Nature of presenting problem: high severity Type of decision-making: high complexity Disclaimers: 1. Inadvertent spelling and grammatical errors are likely due to electronic health record (EHR)/dictation software used and do not reflect on the quality of delivered patient care. 2. The electronic timestamp recorded on this note does not necessarily reflect the actual date and time of the visit or the service. 3. Portions of this note may have been created through electronic templates and computer algorithms that might bring in information either from the system or from other physicians and providers. Please note that such information may or may not contain errors, the occurrence of which are outside of my control. In general (but not always) this happens either in the beginning or at the end of the note. The portion of the note that I have created are generally done in 1 continuous block of text, flanked at the beginning and at the end by " ", and entered into one field in the EHR. 4. There may be other unanticipated errors in the note that are outside of my control. I can only attest to the portions of the note that I have created. Updated Clinical Summary: Very pleasant 42 y/o lady s/p s/p lap cachorro [facility] 09/28/17. Comorbidities: 1. Acute cholecystitis, s/p lap cachorro [facility] 09/28/17 2. BMI 28.4 3. C-sections x 2 4. Cholelithiasis Subjective: No major events or complaints; no significant abd pain and under control with medications; no n/v/d; no sob or cp; + bowel activity; + activity Objective: Vitals: See below Exam: GENERAL: On exam, the patient was sitting in a chair and appeared to be comfortable and in no acute distress. ABDOMEN: Soft, nontender and nondistended. Incision dressings are clean, dry and intact without any evidence of obvious underlying erythema, edema, discharge , or hernia. There are no peritoneal signs or guarding. SKIN: Skin appears to be pink and feels warm to touch. NEUROLOGIC: Patient is awake, alert, and follows commands appropriately. Exam/Review of Systems Vital Signs Vitals Vital Signs Date Time Temp Pulse Resp B/P Pulse Ox O2 Delivery O2 Flow Rate FiO2 09/29/17 08:01 98.0 76 18 111/67 99 09/28/17 12:45 Room Air Intake and Output 09/28/17 09/28/17 09/29/17 14:59 22:59 06:59 Intake Total 1000 ml 600 ml 450 ml Output Total 5 ml Balance 995 ml 600 ml 450 ml Results Result Diagram: 09/29/17 0449 09/29/17 0449 BRENDA LYLE M.D. Sep 29, 2017 12:10
--- NOTE | 2017-09-29 14:01 | PDOCDIS ---
Discharge Instructions CONDITION Patient Condition: Stable HOME CARE INSTRUCTIONS: Special Diet: REGULAR ACTIVITY: Activity Restrictions: Slowly Increase Activity FOLLOW UP/APPOINTMENTS Follow-up Plan Please take your medications as prescribed, see your doctor in the clinic in 1 week. JASEN MARTINS Sep 29, 2017 14:01
[2017-09-29] MEDS ORDERED: HYDR-3498 PO (14:05)
--- NOTE | 2017-09-29 14:08 | DS ---
Date/Time of Note Date/Time of Note DATE: 09/29/17 TIME: 14:05 Discharge Summary Admission/Discharge Info Admit Date/Time Sep 27, 2017 at 00:29 Discharge Date/Time Discharge Diagnosis 1. Cholelithiasis status post laparoscopic cholecystectomy 2. Leukocytosis, secondary to above -trending down now. Patient Condition: Stable Hospital Course 42-year-old female with no significant past medical history who initially presented to [facility] complaining of abdominal pain. Patient was transferred to [facility] because of insurance reasons. She said her pain started 5 days ago and it is localized in the right upper and lower quadrant area. She reported nausea and few episodes of nonbilious nonbloody vomiting. Denied fever/chills, chest pain, shortness of breath, constipation or diarrhea. At [place], right upper quadrant ultrasound shows sludge and stone in the gallbladder. CBD measures 3.4 mm and the gallbladder wall measures 10.2 cm. The patient denied a history of cholelithiasis. Lab outside hospital shows a WBC of 26,000, otherwise CBC and BMP were within acceptable range. So patient was admitted, seen by general surgery team. Patient underwent laparoscopic cholecystectomy. She tolerated the procedure well, afterwards she was able to ambulate, tolerated p.o. diet. Her white count was slightly elevated on the day of discharge, but no fevers, thought to be reactive secondary to the surgery. After getting clearance from the surgery team patient will be discharged home today improved condition. See below for full list of discharge medications, patient will have her liver function tests also performed in the next 4-5 days as an outpatient. Home Meds Active Scripts Hydrocodone Bit-Acetaminophen (Hydrocodone Bit-APAP) 5-325MG Tablet, 1 TAB PO Q4H Y for PAIN LEVEL 4-7 for 14 Days, TAB Prov:JASEN MARTINS. 09/29/17 Follow-up Plan Please take your medications as prescribed, see your doctor in the clinic in 1 week. Primary Care Provider [facility] Time spent on discharge: > 30 minutes Pending Labs Laboratory Tests Test 09/29/17 04:49 White Blood Count 18.110^3/ul (4.8-10.8) Red Blood Count 3.7910^6/ul (4.20-5.40) Hemoglobin 10.1g/dl (12.0-16.0) Hematocrit 30.0% (37.0-47.0) Mean Corpuscular Volume 79.2fl (82.0-101.0) Mean Corpuscular Hemoglobin 26.6pg (29.0-33.0) Mean Corpuscular Hemoglobin Concent 33.7g/dl (32.0-37.0) Red Cell Distribution Width 13.2% (11.5-14.5) Platelet Count 68478^3/UL (140-415) Mean Platelet Volume 9.9fl (7.4-10.4) Neutrophils % 71.5% (39.0-77.0) Lymphocytes % 20.1% (15.0-51.0) Monocytes % 7.2% (0.0-11.0) Eosinophils % 0.4% (0.0-7.0) Basophils % 0.2% (0.0-2.0) Nucleated Red Blood Cells % 0.0/100WBC (0.0-0.0) Neutrophils # 12.910^3/ul (1.6-7.5) Lymphocytes # 3.610^3/ul (0.8-2.9) Monocytes # 1.310^3/ul (0.3-0.9) Eosinophils # 0.110^3/ul (0.0-0.5) Basophils # 0.010^3/ul (0.0-0.1) Nucleated Red Blood Cells # 0.010^3/ul (0.0-0.0) Sodium Level 139mmol/L (135-144) Potassium Level 3.9mmol/L (3.5-5.1) Chloride Level 106mmol/L (97-110) Carbon Dioxide Level 25mmol/L (21-31) Anion Gap 12 (8-16) Blood Urea Nitrogen 12mg/dl (7-20) Creatinine 0.66mg/dl (0.44-1.00) Glucose Level 111mg/dl (70-220) Calcium Level 9.0mg/dl (8.4-10.2) Magnesium Level 1.8mg/dl (1.7-2.5) Total Bilirubin 0.1mg/dl (0.2-1.3) Direct Bilirubin 0.00mg/dl (0.00-0.20) Indirect Bilirubin 0.1mg/dl (0-1.1) Aspartate Amino Transf (AST/SGOT) 46IU/L (15-46) Alanine Aminotransferase (ALT/SGPT) 58IU/L (13-69) Alkaline Phosphatase 124IU/L (42-121) Total Protein 6.6g/dl (6.1-8.1) Albumin 3.2g/dl (3.3-4.9) Globulin 3.40g/dl (1.3-3.2) Albumin/Globulin Ratio 0.94 JASEN MARTINS Sep 29, 2017 14:08
== END 2017-09-29 16:20 | disposition home or self-care (01) | DRG 419 ==
LOC: MS1 09-27 00:29
PROVIDERS: ADMIT Internal Medicine; ATTEND Internal Medicine
PROC: 0FT44ZZ Resection of Gallbladder, Percutaneous Endoscopic Approach (ICD-10-PCS; principal; 2017-09-28 07:30)
DX: K80.00 Calculus of gallbladder with acute cholecystitis without obstruction (principal); K21.9 Gastro-esophageal reflux disease without esophagitis
CPT/HCPCS: 76700; 78226; 80053; 83735; 84100; 85025; 88304; A9537; J0690; J1100; J1650; J1885; J2175; J2250; J2270; J2405; J2543; J2710; J3010; J7042

== ENCOUNTER 2017-10-19 15:05 | Outpatient (CLI) | END 2017-10-19 15:58 | disposition home or self-care (01) ==